=== PATIENT | male | born 1965 | race American Indian/Alaskan Native ===

== ENCOUNTER 2016-06-07 23:57 | Emergency (ER) | payer OTHER ==
[2016-06-08 00:24] LABS: Basophils % (Auto) 0.2 % (0.0-1.8); Hematocrit 46.1 % (35.5-45.6); Hemoglobin 15.1 gm/dl (11.8-15.2); Mean Corpuscular HGB Conc 33 % (32-34); Mean Corpuscular Hemoglobin 30 pg (28-32); Mean Corpuscular Volume 91 fl (84-94); Platelet Count 199 K/mm3 (140-440); Red Blood Count 5.05 M/mm3 (3.65-5.03); Red Cell Distribution Width 14.4 % (13.2-15.2); White Blood Count 3.2 K/mm3 (4.5-11.0)
[2016-06-08 00:40] LABS: Anion Gap 17 mmol/L; Blood Urea Nitrogen 15 mg/dL (9-20); Calcium 8.7 mg/dL (8.4-10.2); Carbon Dioxide 25 mmol/L (22-30); Glucose 102 mg/dL (75-100); Potassium 4.1 mmol/L (3.6-5.0); Sodium 140 mmol/L (137-145)
[2016-06-08 02:19] LABS: Bacteria,Urine 1+ /HPF (Negative); Bilirubin,Urine NEG (Negative); Blood,Urine NEG (Negative); Ketones,Urine NEG (Negative); Leukocyte Esterase,Urine NEG (Negative); Mucus,Urine 3+ /HPF; Nitrite,Urine NEG (Negative); Urobilinogen,Urine < 2.0 mg/dL (<2.0)
[2016-06-08] MEDS ORDERED: NACL 0.9% 1000 ML 1,000 ML IV ONE (06:51)
[2016-06-08] MEDS ORDERED: ZOFRAN IV ONE (06:51)
--- NOTE | 2016-06-08 09:34 | Emergency Department Report ---
ED N/V/D HPI - General Chief complaint: Nausea/Vomiting/Diarrhea Stated complaint: STOMACH CRAMPS/DIARRHEA/VOMITING Time Seen by Provider: 06/08/16 06:22 Source: patient Mode of arrival: Ambulatory Limitations: No Limitations - History of Present Illness MD complaint: nausea, vomiting, diarrhea -: Gradual Description of Vomiting: food contents, watery Description of Diarrhea: water Associated Abdominal Pain: No Location: diffuse Severity: mild Pain Scale: 1 Quality: cramping Consistency: intermittent Improves with: none Worsens with: none Associated Symptoms: denies: myalgias, chest pain, cough, diaphoresis, headaches , loss of appetite, malaise, nausea/vomiting, rash, shortness of breath, syncope , weakness - Related Data Home Medications Medication Instructions Recorded Confirmed Last Taken Darunavir/Cobicistat [Prezcobix 1 each PO QDAY 06/08/16 06/08/16 06/07/16 800 mg-150 mg Tablet] Emtricitabine/Tenofovir [Truvada 2 each PO QDAY 06/08/16 06/08/16 06/07/16 100 mg-150 mg Tablet] Ergocalciferol [Vitamin D2] 1 cap PO QWEEK 06/08/16 06/08/16 06/04/16 Gabapentin [Neurontin] 300 mg PO QDAY 06/08/16 06/08/16 06/07/16 Sulfamethoxazole/Trimethoprim 1 each PO QDAY 06/08/16 06/08/16 06/07/16 [Bactrim DS TAB] Previous Rx's Medication Instructions Recorded Last Taken Type Diphenoxylate HCl/Atropine 1 each PO BID #20 tablet 06/08/16 Unknown Rx [Lomotil 2.5-0.025 mg Tablet] Ondansetron [Zofran Odt] 4 mg PO TID #15 tab.rapdis 06/08/16 Unknown Rx Allergies Allergy/AdvReac Type Severity Reaction Status Date / Time No Known Allergies Allergy Verified 12/16/14 16:55 ED Review of Systems ROS: Stated complaint: STOMACH CRAMPS/DIARRHEA/VOMITING Other details as noted in HPI Constitutional: denies: chills, fever Eyes: denies: eye pain, eye discharge, vision change ENT: denies: ear pain, throat pain Respiratory: denies: cough, shortness of breath, wheezing Cardiovascular: denies: chest pain, palpitations Endocrine: no symptoms reported Gastrointestinal: denies: abdominal pain, nausea, diarrhea Genitourinary: denies: urgency, dysuria Musculoskeletal: denies: back pain, joint swelling, arthralgia Skin: denies: rash, lesions Neurological: denies: headache, weakness, paresthesias Psychiatric: denies: anxiety, depression Hematological/Lymphatic: denies: easy bleeding, easy bruising ED Past Medical Hx - Past Medical History Previous Medical History?: Yes Hx HIV: Yes Additional medical history: neuropathy - Surgical History Past Surgical History?: Yes Hx Cholecystectomy: Yes - Social History Smoking Status: Current Every Day Smoker Substance Use Type: None - Medications Home Medications: Home Medications Medication Instructions Recorded Confirmed Last Taken Type Darunavir/Cobicistat [Prezcobix 1 each PO QDAY 06/08/16 06/08/16 06/07/16 History 800 mg-150 mg Tablet] Diphenoxylate HCl/Atropine 1 each PO BID #20 tablet 06/08/16 Unknown Rx [Lomotil 2.5-0.025 mg Tablet] Emtricitabine/Tenofovir [Truvada 2 each PO QDAY 06/08/16 06/08/16 06/07/16 History 100 mg-150 mg Tablet] Ergocalciferol [Vitamin D2] 1 cap PO QWEEK 06/08/16 06/08/16 06/04/16 History Gabapentin [Neurontin] 300 mg PO QDAY 06/08/16 06/08/16 06/07/16 History Ondansetron [Zofran Odt] 4 mg PO TID #15 tab.rapdis 06/08/16 Unknown Rx Sulfamethoxazole/Trimethoprim 1 each PO QDAY 06/08/16 06/08/16 06/07/16 History [Bactrim DS TAB] ED Physical Exam - General Limitations: No Limitations General appearance: alert, in no apparent distress - Head Head exam: Present: atraumatic, normocephalic - Eye Eye exam: Present: normal appearance - ENT ENT exam: Present: mucous membranes moist - Neck Neck exam: Present: normal inspection - Respiratory Respiratory exam: Present: normal lung sounds bilaterally. Absent: respiratory distress - Cardiovascular Cardiovascular Exam: Present: regular rate, normal rhythm. Absent: systolic murmur, diastolic murmur, rubs, gallop - GI/Abdominal GI/Abdominal exam: Present: soft, normal bowel sounds - Rectal Rectal exam: Present: deferred - Extremities Exam Extremities exam: Present: normal inspection - Back Exam Back exam: Present: normal inspection - Neurological Exam Neurological exam: Present: alert, oriented X3 - Psychiatric Psychiatric exam: Present: normal affect, normal mood - Skin Skin exam: Present: warm, dry, intact, normal color. Absent: rash ED Course Vital Signs 06/08/16 06/08/16 06/08/16 00:03 02:46 02:48 Temperature 98.1 F Pulse Rate 70 60 Respiratory 18 18 18 Rate Blood Pressure 120/77 Blood Pressure 112/69 [Left] O2 Sat by Pulse 98 100 100 Oximetry ED Medical Decision Making - Lab Data Result diagrams: 06/08/16 00:08 06/08/16 00:08 - Medical Decision Making patient doing well, tolerating fluids, labs negative , repeat abdominal exam with no tenderness or guarding , will dc and follow up. Critical care attestation.: If time is entered above; I have spent that time in minutes in the direct care of this critically ill patient, excluding procedure time. ED Disposition Clinical Impression: Vomiting Disposition: DISCHARGED TO HOME OR SELFCARE Is pt being admited?: No Does the pt Need Aspirin: No Condition: Good Instructions: Acute Nausea and Vomiting (ED), Acute Diarrhea (ED) Prescriptions: Diphenoxylate HCl/Atropine [Lomotil 2.5-0.025 mg Tablet] 1 each PO BID #20 tablet Ondansetron [Zofran Odt] 4 mg PO TID #15 [email or web address] Referrals: PRIMARY CARE, [Primary Care Provider] - 3-5 Days Time of Disposition: 09:37
[2016-06-08 10:05] VITALS: BP 105/64
== END 2016-06-08 10:05 | disposition home or self-care (01) ==
LOC: ED 23:57
DX: R11.2 Nausea with vomiting, unspecified (principal); F17.200 Nicotine dependence, unspecified, uncomplicated; G62.9 Polyneuropathy, unspecified
CPT/HCPCS: 36415; 80048; 81001; 85025; 96361; 96374; 99283; J2405; J7030